=== PATIENT | male | born 1955 | race American Indian/Alaskan Native ===

== ENCOUNTER 2018-04-27 07:22 | Emergency (ER) | payer OTHER ==
[2018-04-27 07:23] VITALS: BMI 27.7
--- NOTE | 2018-04-27 07:47 | ED PDOC ---
Arrival/HPI - General Chief Complaint: Headache Time Seen by Provider: 04/27/18 07:46 Historian: Patient - History of Present Illness Narrative History of Present Illness (Text): 62 y/o M w/ h/o hypertension and diabetes presenting to the emergency department complaining of gradual onset of a persistent headache for the past 2 days. He reports the pain is localized to the right side of the head with no radiation down the neck. He took Tylenol yesterday with no alleviation in symptoms. The patient states he is worried about his elevated blood pressure and reports similar symptoms in the past. He took his morning dose of Norvasc 10mg and Losartan 50mg prior to arrival. Patient reports nausea, but denies any trauma, photophobia, vision change, fever, chills, chest pain, shortness of breath, abdominal pain, vomiting, diarrhea, urinary symptoms, back pain, neck pain, dizziness, gait change, or any other complaints. PMD: Dr. Lyssa Cooley Time/Duration: Other (2 days) Symptom Onset: Gradual Symptom Course: Unchanged Quality: Pressure Severity Level: Moderate Activities at Onset: Rest Context: Home Past Medical History - Provider Review Nursing Documentation Reviewed: Yes - Travel History Have you recently traveled outside [place] w/in the past 3 mons?: No - Infectious Disease Hx of Infectious Diseases: None - Tetanus Immunization Tetanus Immunization: Unknown - Cardiac Hx Hypertension: Yes - Psychiatric Hx Depression: No Hx Emotional Abuse: No Hx Physical Abuse: No Hx Substance Use: No - Suicidal Assessment Feels Threatened In Home Enviroment: No Family/Social History - Physician Review Nursing Documentation Reviewed: Yes Family/Social History: No Known Family HX Smoking Status: Never Smoked Hx Alcohol Use: No Hx Substance Use: No Hx Substance Use Treatment: No Allergies/Home Meds Allergies/Adverse Reactions: Allergies crabs Allergy (Intermediate, Uncoded 01/05/12 11:17) DIARRHEA shrimp Allergy (Mild, Uncoded 01/05/12 11:17) ITCHING Home Medications: Home Meds Medication Instructions Recorded Confirmed Amlodipine Bes/Olmesartan Med 1 tab PO DAILY 01/05/12 04/25/13 [[place] 10 mg-40 mg] Glyburide/Metformin HCl 1 tab PO BID 01/05/12 04/25/13 [Glyburide/Metformin 5 mg-500 mg] Review of Systems - Physician Review All systems were reviewed & negative as marked: Yes - Review of Systems Constitutional: absent: Fevers, Other (Chills) Eyes: absent: Vision Changes, Photophobia Respiratory: absent: SOB Cardiovascular: absent: Chest Pain Gastrointestinal: Nausea. absent: Abdominal Pain, Diarrhea, Vomiting Genitourinary Male: absent: Dysuria, Frequency, Hematuria Musculoskeletal: absent: Back Pain, Neck Pain Neurological: Headache. absent: Dizziness, Gait Changes Physical Exam Vital Signs Reviewed: Yes Vital Signs Pulse Resp BP Pulse Ox 04/27/18 07:30 64 18 180/95 H 97 Temperature: Afebrile Blood Pressure: Hypertensive Pulse: Regular Respiratory Rate: Normal Appearance: Positive for: Well-Appearing, Non-Toxic, Comfortable Pain Distress: None Mental Status: Positive for: Alert and Oriented X 3 - Systems Exam Head: Present: Atraumatic, Normocephalic Pupils: Present: PERRL Extroacular Muscles: Present: EOMI Conjunctiva: Present: Normal Mouth: Present: Moist Mucous Membranes Neck: Present: Normal Range of Motion Respiratory/Chest: Present: Clear to Auscultation, Good Air Exchange. No: Respiratory Distress, Accessory Muscle Use Cardiovascular: Present: Regular Rate and Rhythm, Normal S1, S2. No: Murmurs Abdomen: No: Tenderness, Distention, Peritoneal Signs Back: Present: Normal Inspection Upper Extremity: Present: Normal Inspection. No: Cyanosis, Edema Lower Extremity: Present: Normal Inspection. No: Edema Neurological: Present: GCS=15, CN II-XII Intact, Speech Normal, Motor Func Grossly Intact, Normal Cerebellar Funct, Gait Normal, Memory Normal Skin: Present: Warm, Dry, Normal Color. No: Rashes Psychiatric: Present: Alert, Oriented x 3, Normal Insight, Normal Concentration Medical Decision Making ED Course and Treatment: 04/27/18 07:47 Impression: 62 year old male presents complaining of persistent headache for the past 2 days associated with nausea. Differential Diagnosis included but are not limited to: Hypertensive urgency Migraines Clustered headache Plan: -- CT Head w/o contrast -- Labs -- Reglan --IV Fluids --Toradol -- Urinalysis -- Reassess and disposition Progress Notes: 04/27/18 08:48 Labs reviewed with anemia noted and slightly elevated glucose. CTH results pending. 04/27/18 10:10 CTH shows old lacunar infarcts as well as microangiopathic changes chronic in nature. Patient reevaluated with improvement in symptoms. He does not desire to stay and will follow up with his PCP in the next 2 days. Patient is advised to follow up with neurology for MRI. Will provide follow up. Scripts provided. He is stable for discharge. - Lab Interpretations I have reviewed the lab results: Yes - RAD Interpretation Narrative RAD Interpretations (Text): PROCEDURE: CT HEAD WITHOUT CONTRAST. Dictator : Nicole Vegas MD Report Date : 04/27/2018 09:38:14 IMPRESSION: No acute intracranial abnormality. Old lacunar infarctions in the right caudate head and basal ganglia. Old infarctions in the right posterior inferior temporal lobe and right superior lateral cerebellar hemisphere. Community Service Specialist: Radiologist - Scribe Statement The provider has reviewed the documentation as recorded by the Scribe Meenu Alvarado Provider Scribe Attestation: All medical record entries made by the Scribe were at my direction and personally dictated by me. I have reviewed the chart and agree that the record accurately reflects my personal performance of the history, physical exam, medical decision making, and the department course for this patient. I have also personally directed, reviewed, and agree with the discharge instructions and disposition. Disposition/Present on Arrival - Present on Arrival Any Indicators Present on Arrival: No History of DVT/PE: No History of Uncontrolled Diabetes: No Urinary Catheter: No History of Decub. Ulcer: No History Surgical Site Infection Following: None - Disposition Have Diagnosis and Disposition been Completed?: Yes Diagnosis: Headache Disposition: HOME/ ROUTINE Disposition Time: 10:13 Patient Plan: Discharge Condition: IMPROVED Discharge Instructions (ExitCare): Sinus Headache (DC), Headache, Adult (DC), Tension Headache (DC) Additional Instructions: Please follow up with your PCP in 1-2 days Please follow up with neurology for outpatient MRI All medical record entries made by the Scribe were at my direction and personally dictated by me. I have reviewed the chart and agree that the record accurately reflects my personal performance of the history, physical exam, medical decision making, and the department course for this patient. I have also personally directed, reviewed, and agree with the discharge instructions and disposition. Prescriptions: Acetaminophen/Butalbital/Caf [Fioricet] 1 tab PO Q6H #4 tab Metoclopramide HCl [Reglan] 5 mg PO PRN PRN #10 tablet PRN Reason: Headache Referrals: Jeremy Biggs MD [Staff Provider] - Follow up with primary Forms: [employer] (B[place]hi), WORK NOTE
[2018-04-27] MEDS ORDERED: Sodium Chloride 0.9% 1,000 ML IV STA (07:51)
[2018-04-27 08:22] LABS: BASO # 0.02 K/mm3 (0.0-2.0); BASO % 0.2 % (0.0-3.0); EOS # 0.2 (0.0-0.7); EOS % 1.5 % (1.5-5.0); GRAN # 7.78 (1.4-6.5); GRAN % 75.8 % (50.0-68.0); HEMOGLOBIN 11.7 g/dL (14.0-18.0); LYMPH % 19.2 % (22.0-35.0); MEAN CELL VOLUME 82.2 fl (80.0-105.0); MEAN CORPUSCULAR HEMOGLOBIN 26.7 pg (25.0-35.0); MEAN CORPUSCULAR HGB CONC 32.4 g/dl (31.0-37.0); MEAN PLATELET VOLUME 10.4 fl (7.0-11.0); MONO # 0.3 (0.1-0.6); MONO % 3.3 % (1.0-6.0); RBC 4.39 10^6/uL (3.5-6.1); RED CELL DISTRIBUTION WIDTH 14.9 % (11.5-14.5); WHITE BLOOD COUNT 10.3 10^3/ul (4.5-11.0)
[2018-04-27 08:29] LABS: ALB/GLOB RATIO 1.2 (1.1-1.8); ALBUMIN 4.1 g/dL (3.0-4.8); ALT/SGPT 41 U/L (7-56); AST/SGOT 44 U/L (17-59); BLOOD UREA NITROGEN 21 mg/dL (7-21); CALCIUM 9.2 mg/dL (8.4-10.5); GFR NON-AFRICAN AMERICAN > 60
[2018-04-27 08:45] LABS: TROPONIN I < 0.01 ng/mL
[2018-04-27] MEDS ORDERED: DiphenhydrAMINE 50 mg/ml Inj IVP STA (09:15)
[2018-04-27] MEDS ORDERED: Apap-Butalbital-Caffeine 325-50-40mg Tab PO ONE (09:18)
--- NOTE | 2018-04-27 09:41 | CT ---
Date of service: 04/27/2018 PROCEDURE: CT HEAD WITHOUT CONTRAST. HISTORY: headache COMPARISON: None available. TECHNIQUE: Axial computed tomography images were obtained through the head/brain without intravenous contrast. Radiation dose: Total exam DLP = 964.41 mGy-cm. This CT exam was performed using one or more of the following dose reduction techniques: Automated exposure control, adjustment of the mA and/or kV according to patient size, and/or use of iterative reconstruction technique. FINDINGS: HEMORRHAGE: No intracranial hemorrhage. BRAIN: There is an old lacunar infarctions in the right caudate head and basal ganglia. There are old infarctions in the right posterior inferior temporal lobe and right superior lateral cerebellar hemisphere.. There is no mass, mass effect or abnormal extra-axial fluid collection. This the midline sagittal structures are normal. VENTRICLES: There is mild age-related global parenchymal volume loss and proportionate enlargement of the ventricles and cortical sulci. CALVARIUM: The skull base and calvarium are normal. PARANASAL SINUSES: Predominantly clear. MASTOID AIR CELLS: Predominantly clear. OTHER FINDINGS: The globes are symmetric and normal in appearance. IMPRESSION: No acute intracranial abnormality. Old lacunar infarctions in the right caudate head and basal ganglia. Old infarctions in the right posterior inferior temporal lobe and right superior lateral cerebellar hemisphere.
[2018-04-27 09:58] LABS: URINE BILIRUBIN NEGATIVE (NEGATIVE); URINE BLOOD NEGATIVE (NEGATIVE); URINE GLUCOSE (UA) NEGATIVE (NEGATIVE); URINE LEUKOCYTE ESTERASE NEGATIVE Leu/uL (NEGATIVE); URINE PROTEIN TRACE mg/dL (<30 mg/dL); URINE UROBILINOGEN 0.2 E.U./dL (<1 E.U./dL)
[2018-04-27 10:10] LABS: URINE APPEARANCE CLEAR (CLEAR); URINE COLOR YELLOW (YELLOW)
[2018-04-27 10:11] LABS: URINE RBC 0 - 2 /hpf (0-2); URINE WBC NEGATIVE /hpf (0-6)
[2018-04-27 10:33] VITALS: BP 152/82
[2018-04-27 10:34] VITALS: PULSE 80; RESP 18; O2SAT 98
== END 2018-04-27 10:34 | disposition home or self-care (01) ==
LOC: ED 07:22
DX: R51 Headache (principal); I10 Essential (primary) hypertension
CPT/HCPCS: 70450; 80053; 81001; 84484; 85025; 96374; 96375; 99285; J1885; J2765; J7030

== ENCOUNTER 2018-07-12 14:33 | Inpatient (IN) | payer OTHER ==
--- NOTE | 2018-07-12 14:42 | ED PDOC ---
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 This is the last time well. Patient went to workplace nurse who noticed patient with R sided facial droop and slurred speech. Patient denies pain, fever, nausea, vomiting, chest pain, dyspnea. Past Medical History - Provider Review Nursing Documentation Reviewed: Yes - Infectious Disease Hx of Infectious Diseases: None - Tetanus Immunization Tetanus Immunization: Unknown - Cardiac Hx Hypertension: Yes - Psychiatric Hx Depression: No Hx Emotional Abuse: No Hx Physical Abuse: No Hx Substance Use: No - Suicidal Assessment Feels Threatened In Home Enviroment: No Family/Social History - Physician Review Nursing Documentation Reviewed: Yes Family/Social History: No Known Family HX Smoking Status: Never Smoked Hx Alcohol Use: No Hx Substance Use: No Hx Substance Use Treatment: No Allergies/Home Meds Allergies/Adverse Reactions: Allergies crabs Allergy (Intermediate, Uncoded 07/12/18 18:11) DIARRHEA shrimp Allergy (Mild, Uncoded 07/12/18 18:11) ITCHING Home Medications: Home Meds Medication Instructions Recorded Confirmed Sitagliptin Phos/Metformin HCl 1 each PO BID 07/12/18 07/12/18 [Janumet Xr 50-1,000 mg Tablet] amLODIPine [Norvasc] 10 mg PO DAILY 07/12/18 07/12/18 Review of Systems - Physician Review All systems were reviewed & negative as marked: Yes - Review of Systems Constitutional: absent: Fevers Respiratory: absent: SOB Physical Exam - Physical Exam Narrative Physical Exam (Text): Gen: NAD Head: NC/AT Eyes: PERRL ENT: MMM Neck: Supple Chest: No tenderness CV: Regular rate Lungs: CTA b/l Abd: Soft, NT Back: No CVA tenderness Skin: No rash Extremities: No edema or tenderness Neuro: Alert. R sided facial droop. R arm motor 4/5. Finger Stick Blood Glucose: 101 Medical Decision Making ED Course and Treatment: CODE STROKE activated on arrival. EKG NSR 67 bpm, no ST elevations. 07/12/2018 15:[address] IMPRESSION: There is a chronic infarct with encephalomalacia in the right cerebellar hemisphere and right medial temporal lobe. There are no acute findings. Dictator: Godwin Ha MD 07/12/2018 15:12 Head/Neck CTA IMPRESSION: Unremarkable CT Angiography of the Brain. Dictator: Godwin Ha MD 07/12/2018 15:55 Chest X-ray IMPRESSION: No active disease. Dictator: Devante Connelly MD Prior to tPA administration, patient's neuro exam now normal. Aspirin administered. Dr. Krishnan accepts patient to medical service. Dr. Tolentino will consult. - RAD Interpretation Radiology Orders: 07/12/18 14:38 CTA HEAD/NECK CODE STROKE [CT] Stat HEAD W/O (CODE STROKE) [CT] Stat CHEST PORTABLE [RAD] Stat - Medication Orders Current Medication Orders: Sodium Chloride (Sodium Chloride 0.9%) 1,000 mls @ 100 mls/hr IV .Q10H GRACE NIHSS Scale ([place]) Time Performed: 15:20 - How Severe is the Stoke Baseline Level of Consciousness: 0=Alert LOC to Questions: 0=Both comments correct LOC to commands: 0=Obeys both correctly Best Gaze: 0=Normal Visual: 0=No visual loss Facial: 2=Partial (lower face paralysis) Motor Arm - Left: 0=No drift Motor Arm - Right: 1=Drift noted before 10 sec Motor Leg - Left: 0=No drift Motor Leg - Right: 0=No drift Limb Ataxia: 0=Absent Sensory: 0=Normal Best Language: 0=No aphasia Dysarthia: 1=Mild to moderate slurring Extinction & Inattention (Neglect): 0=Normal, no object Score: 4 Risk Level: Minor Stroke Risk NIHSS Scale([place]) 2 Time Performed: 15:58 - How Severe is the Stoke Baseline Level of Consciousness: 0=Alert LOC to Questions: 0=Both comments correct LOC to commands: 0=Obeys both correctly Best Gaze: 0=Normal Visual: 0=No visual loss Facial: 0=Normal Motor Arm - Left: 0=No drift Motor Arm - Right: 0=No drift Motor Leg - Left: 0=No drift Motor Leg - Right: 0=No drift Limb Ataxia: 0=Absent Sensory: 0=Normal Best Language: 0=No aphasia Dysarthia: 0=Normal articulation Extinction & Inattention (Neglect): 0=Normal, no object Score: 0 Risk Level: No Stroke Risk rTPA Inclusion/Exclusion - Refusal of Treatment Patient Refused Treatment: No - Inclusion Criteria for Altepase Patient is 18 years or Older: Yes The Clinical Diagnosis of Ischemic Stroke That is Causing a Potentially Disabling Neurological Deficit: Yes Time of Onset is Well Established to be Less Than 270 Minute Before Treatment Would Begin: Yes Risk/Benefit Discussed With Patient/Family Member Present: Yes - Warning to TPA With Conditions Condition: Rapid Improvement Disposition/Present on Arrival - Present on Arrival Any Indicators Present on Arrival: No History of DVT/PE: No History of Uncontrolled Diabetes: No Urinary Catheter: No History Surgical Site Infection Following: None - Disposition Have Diagnosis and Disposition been Completed?: Yes Diagnosis: TIA (transient ischemic attack) Disposition: HOSPITALIZED Disposition Time: 15:03 Patient Plan: Observation, Telemetry Condition: FAIR
[2018-07-12] MEDS ORDERED: Iohexol 350 MG/100 ML VIAL ONE (14:44)
--- NOTE | 2018-07-12 14:56 | CP.PCM.CON ---
<Henry Chicas - Last Filed: 07/13/18 15:02> History of Present Illness - History of Present Illness History of Present Illness: Neurology consult note for Dr. Rajan Chicas PGY2 Patient is a 62 M with past medical history of TIA (3-4 years prior), NIDDM and hypertension presenting with complaints of similar to his TIA symptoms a few years back. 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 Prior to this he noticed that his walking was off, with a right sided limp as well as slurred speech. He was concerned with these symptoms and asked a coworker to assess his strength. Coworker stated his strength was fine however patient felt otherwise so he then went to the staff nurse for further evaluation where she found patient to have right sided facial droop and slurred speech. Patient denies fevers, chills, headache, dizziness, vision changes, or olfactory changes. 12 point ROS reviewed and unremarkable except what has been mentioned in HPI. PMD: Dr. Omalley Sayed PMHx: TIA, NIDDM, Hypertension Medications:Glyburide/Metformin HCL 5 mg-500 mg BID, Amlodipine Bes/Olmesartan Med 10 mg-40 mg Social Hx: Denies tobacco, alcohol, illicit drug use CTH 07/12/18: chronic infarct with encephalomalacia in the right cerebellar hemisphere and right medial temporal lobe. No acute findings. CTH 04/20: no acute intracranial abnormality. Old lacunar infarctions in right caudate head and basal ganglia. Old infarctions in the right posterior inferior temporal lobe and right superior lateral cerebellar hemisphere CTA head and neck: unremarkable Review of Systems - Review of Systems All systems: reviewed and no additional remarkable complaints except Past Patient History - Infectious Disease Hx of Infectious Diseases: None - Tetanus Immunizations Tetanus Immunization: Unknown - Past Social History Smoking Status: Never Smoked - CARDIAC Hx Hypertension: Yes - PSYCHIATRIC Hx Depression: No Hx Emotional Abuse: No Hx Physical Abuse: No Hx Substance Use: No Meds Allergies/Adverse Reactions: Allergies Allergy/AdvReac Type Severity Reaction Status Date / Time crabs Allergy Intermediate DIARRHEA Uncoded 07/12/18 18:11 shrimp Allergy Mild ITCHING Uncoded 07/12/18 18:11 - Medications Medications: Current Medications Sodium Chloride (Sodium Chloride 0.9%) 1,000 mls @ 100 mls/hr IV .Q10H GRACE Physical Exam - Head Exam Head Exam: ATRAUMATIC, NORMAL INSPECTION, NORMOCEPHALIC - Eye Exam Eye Exam: EOMI - ENT Exam ENT Exam: Mucous Membranes Moist - Respiratory Exam Respiratory Exam: Clear to Auscultation Bilateral, NORMAL BREATHING PATTERN - Cardiovascular Exam Cardiovascular Exam: REGULAR RHYTHM - Neurological Exam Neurological exam: Alert, CN II-XII Intact, Oriented x3 - Expanded Neurological Exam Expanded Speech: Fluid Speech Cranial nerves: EOM's Intact: Normal, Facial Sensation: Normal, Tongue D eviation: Normal Cerebellar Function: Finger to Nose: Normal, Heel to Amado: Normal, Romberg: Normal Upper motor neuron: Pronator Drift: Abnormal Right, Sensory Extinction: Normal Sensory exam: Lower Extremity 2 Point Discrimination: Normal, Upper Extremity 2 Point Discrimination: Normal Neuro motor strength exam: Left Upper Extremity: 5, Right Upper Extremity: 5, Left Lower Extremity: 5, Right Lower Extremity: 5 DTR: Patellar Left: 0, Patellar Right: 0 Coma Scale Motor Response: OBEYS COMMANDS - Psychiatric Exam Psychiatric exam: Normal Affect, Normal Mood - Skin Skin Exam: Normal Color, Warm Results - Labs Result Diagrams: 07/13/18 06:00 07/13/18 06:00 Assessment & Plan - Assessment and Plan (Free Text) Assessment: 62 M with history of right cerebellar stroke presenting with TIA symptoms including right arm heaviness, slurred speech, and right leg weakness which have improved within less than 24 hours. -Start daily aspirin -Start Plavix for 3 weeks -Start statin -MRI brain -Lipid panel, HgA1c <Saad Tolentino - Last Filed: 07/16/18 14:08> Results - Vital Signs Recent Vital Signs: Last Vital Signs Temp 98.1 F 07/15/18 12:00 Pulse 65 07/15/18 12:00 Resp 21 07/15/18 12:00 BP 168/97 H 07/15/18 12:00 Pulse Ox 99 07/14/18 00:01 - Labs Result Diagrams: 07/13/18 06:00 07/13/18 06:00 Labs: Laboratory Results - last 24 hr 07/15/18 17:15 POC Glucose (mg/dL) 115 H Attending/Attestation - Attestation I have personally seen and examined this patient.: Yes I have fully participated in the care of the patient.: Yes I have reviewed all pertinent clinical information: Yes Notes (Text): I agree with the assessment and plan: -Start daily aspirin -Start Plavix for 3 weeks -Start statin -MRI brain -Lipid panel, HgA1c
--- NOTE | 2018-07-12 15:06 | CT ---
Date of service: 07/12/2018 PROCEDURE: CT HEAD WITHOUT CONTRAST. HISTORY: Code Stroke COMPARISON: 04/27/2018 TECHNIQUE: Axial computed tomography images were obtained through the head/brain without intravenous contrast. Radiation dose: Total exam DLP = 1027.48 mGy-cm. This CT exam was performed using one or more of the following dose reduction techniques: Automated exposure control, adjustment of the mA and/or kV according to patient size, and/or use of iterative reconstruction technique. FINDINGS: HEMORRHAGE: No intracranial hemorrhage. BRAIN: No mass effect or edema. There is a chronic infarct with encephalomalacia in the right cerebellar hemisphere and right medial temporal lobe. There are no acute findings. VENTRICLES: Unremarkable. No hydrocephalus. CALVARIUM: Unremarkable. PARANASAL SINUSES: Unremarkable as visualized. No significant inflammatory changes. MASTOID AIR CELLS: Unremarkable as visualized. No inflammatory changes. OTHER FINDINGS: None. IMPRESSION: There is a chronic infarct with encephalomalacia in the right cerebellar hemisphere and right medial temporal lobe. There are no acute findings.
--- NOTE | 2018-07-12 15:16 | CT ---
Date of service: 07/12/2018 PROCEDURE: CT Angiography of the neck with contrast HISTORY: R sided weakness/facial droop COMPARISON: None. TECHNIQUE: Contiguous axial images of the neck were obtained from the level of the skull-base to the superior mediastinum in the arteriographic phase of enhancement. Coronal and sagittal reformats or also generated. IV contrast dose: 100 cc of Omni 350 Radiation dose: Total exam DLP = 624.96 mGy-cm. This CT exam was performed using one or more of the following dose reduction techniques: Automated exposure control, adjustment of the mA and/or kV according to patient size, and/or use of iterative reconstruction technique. FINDINGS: RIGHT CAROTID ARTERIES: Common Carotid Artery: Normal. Carotid Bifurcation: Normal. Internal Carotid Artery:Normal. External Carotid Artery (proximal branches): Normal. LEFT CAROTID ARTERIES: Common Carotid Artery: Normal. Carotid Bifurcation: Normal. Internal Carotid Artery:Normal. External Carotid Artery (proximal branches): Normal. VERTEBRAL ARTERIES: Right Vertebral Artery: Normal. Left Vertebral Artery: Normal. OTHER FINDINGS: no aortic atherosclerotic calcification or mural plaque present. IMPRESSION: Normal CT Angiography of the neck. PROCEDURE: CT Angiography of the Brain. HISTORY: R sided weakness/facial droop COMPARISON: None available. TECHNIQUE: CT angiography of the intracranial arteries was performed. Coronal and sagittal maximum intensity projection reformated images were generated. Radiation dose: Total exam DLP = 624.96 mGy-cm. This CT exam was performed using one or more of the following dose reduction techniques: Automated exposure control, adjustment of the mA and/or kV according to patient size, and/or use of iterative reconstruction technique. FINDINGS: INTERNAL CEREBRAL ARTERIES: Unremarkable. The skull base, petrous, cavernous and supraclinoid segments are bilaterally widely patent. ANTERIOR CEREBRAL ARTERIES: Unremarkable. A1 and A2 segments are widely patent. Smaller distal branches unremarkable, as visualized. MIDDLE CEREBRAL ARTERIES: Unremarkable. M1 and M2 segments are widely patent. Perisylvian branches grossly symmetric. POSTERIOR CIRCULATION: Basilar Artery: Unremarkable. Distal Vertebral Arteries: Unremarkable. Posterior Cerebral Arteries: Unremarkable. Posterior Inferior Cerebellar Arteries: Unremarkable. ANEURYSM/ VASCULAR MALFORMATIONS: None. OTHER FINDINGS: None. IMPRESSION: Unremarkable CT Angiography of the Brain.
[2018-07-12] MEDS ORDERED: ALTEPLASE IV ONE (15:30)
[2018-07-12] MEDS ORDERED: [UNRECOGNIZED DRUG - OTHER] IV ONE (15:30)
[2018-07-12] MEDS: Sodium Chloride 0.9% 1,000 ML IV SCH (15:33)
[2018-07-12 15:35] LABS: BASO # 0.03 K/mm3 (0.0-2.0); BASO % 0.4 % (0.0-3.0); EOS # 0.2 (0.0-0.7); EOS % 2.3 % (1.5-5.0); GRAN # 5.4 (1.4-6.5); GRAN % 67.8 % (50.0-68.0); HEMOGLOBIN 12.1 g/dL (14.0-18.0); LYMPH # 1.9 (1.2-3.4); LYMPH % 23.3 % (22.0-35.0); MEAN CORPUSCULAR HEMOGLOBIN 26.7 pg (25.0-35.0); MEAN CORPUSCULAR HGB CONC 32.2 g/dl (31.0-37.0); MEAN PLATELET VOLUME 9.9 fl (7.0-11.0); MONO # 0.5 (0.1-0.6); MONO % 6.2 % (1.0-6.0); RBC 4.53 10^6/uL (3.5-6.1); RED CELL DISTRIBUTION WIDTH 14.9 % (11.5-14.5)
[2018-07-12 15:54] LABS: INR 0.94; PARTIAL THROMBOPLASTIN TIME 29.9 Seconds (25.1-36.5); PROTHROMBIN TIME 10.7 SECONDS (9.4-12.5)
[2018-07-12 15:58] LABS: ALB/GLOB RATIO 1.3 (1.1-1.8); ALBUMIN 4.4 g/dL (3.0-4.8); ALT/SGPT 47 U/L (7-56); AST/SGOT 42 U/L (17-59); BLOOD UREA NITROGEN 25 mg/dL (7-21); CALCIUM 9.6 mg/dL (8.4-10.5); GFR NON-AFRICAN AMERICAN > 60; HDL CHOLESTEROL 77 mg/dL (29-60)
--- NOTE | 2018-07-12 15:59 | RAD ---
Date of service: 07/12/2018 HISTORY: Code Stroke COMPARISON: No prior. FINDINGS: LUNGS: No active pulmonary disease. PLEURA: No significant pleural effusion identified, no pneumothorax apparent. CARDIOVASCULAR: No atherosclerotic calcification present Normal. OSSEOUS STRUCTURES: No significant abnormalities. VISUALIZED UPPER ABDOMEN: Normal. OTHER FINDINGS: None. IMPRESSION: No active disease.
[2018-07-12 16:00] LABS: LDL CHOLESTEROL 99 mg/dL (0-129)
[2018-07-12 16:03] LABS: TROPONIN I < 0.01 ng/mL
--- NOTE | 2018-07-12 18:35 | CARD ---
APPROVED REPORT Date of service: 07/12/2018 EKG Measurement Heart [id number] <Conclusion> Normal sinus rhythm Left ventricular hypertrophy Nonspecific T wave abnormality Abnormal ECG
[2018-07-12 18:57] VITALS: BMI 28.4
[2018-07-12] MEDS ORDERED: Pneumococcal 23-Valent Vaccine IM ONE (18:57)
[2018-07-12] MEDS ORDERED: Influenza Vaccine 60 mcg/0.5 mL SYR (4YR UP) IM ONE (18:57)
--- NOTE | 2018-07-13 01:59 | HP ---
DATE OF EXAM: 07/12/2018 The patient was seen and examined at the bedside in telemetry on 07/12/2018. CHIEF COMPLAINT: Right-sided weakness. HISTORY OF PRESENT ILLNESS: Mr. Stephane Everett is a 62-year-old male came with right-sided weakness . 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 The patient went to work place, nurse who noticed that the patient with right-sided facial droop and slurring speech. The patient denies pain, fever, nausea, vomiting, chest pain, or dysphagia. History of itn-recmbvf-bmwrqbmwe diabetes mellitus and hypertension. When I saw the patient in the room, facial droop was better. PAST MEDICAL HISTORY: Par-lcpqoso-ceaxytxau diabetes mellitus, hypertension, and history of TIA few years ago. SOCIAL HISTORY: Denies tobacco, alcohol, or illicit drug use. FAMILY HISTORY: Father mother noncontributory. ALLERGIES: THE PATIENT IS ALLERGIC WITH CRABS AND SHRIMPS, BUT NOT WITH MEDICATIONS. HOME MEDICATIONS: Denied. PHYSICAL EXAMINATION: VITAL SIGNS: Temperature 97.7, pulse 59, blood pressure 170/83, respiratory rate 18, and oxygenation 98% on room air. HEENT: Head; normocephalic and atraumatic. Eyes; PERRLA. Extraocular muscles intact. Conjunctivae clear. Nose patent. Mucous membrane moist. NEUROLOGIC: Cranial nerves II through XII are intact. Oriented x3. Speech fluent. EXTREMITIES: All 4 extremities strength is 5/5. LABORATORY DATA: White blood cell 8, hemoglobin 12.1, hematocrit 37.6, and platelets 207. Sodium 140, potassium 3.7, BUN 25, and creatinine 1. Glucose 129. Liver function test is within normal limits. HDL 77. Cholesterol 199. Triglycerides 62. ASSESSMENT AND PLAN: Mr. Stephane Everett is a 62-year-old male with anemia, increased BUN, hyperglycemia, and came with weakness. CAT scan of the head and neck done. Unremarkable CT angio of the brain. Chest x-ray reviewed by me, no active disease. The patient has history of transient ischemic attack, odb-tzhhyob-feindlqaa diabetes mellitus, hypertension, came with complaints of transient ischemic attack symptoms, but tPA window was over as per ER as he had discussions done with neurologist. All scans were reviewed by me. Discussion done with ER physician and the patient's nurse. The patient seen by Dr. Henry Chicas. Final diagnosis is transient ischemic attack. Gastrointestinal and deep venous thrombosis prophylaxes. Repeat labs. We will follow. Arza Krishnan MD MTDD
[2018-07-13] MEDS: Sodium Chloride 0.9% 1,000 ML IV SCH (06:16)
[2018-07-13 06:43] LABS: HEMOGLOBIN 11.6 g/dL (14.0-18.0); MEAN CELL VOLUME 82.7 fl (80.0-105.0); MEAN CORPUSCULAR HEMOGLOBIN 26.1 pg (25.0-35.0); MEAN CORPUSCULAR HGB CONC 31.5 g/dl (31.0-37.0); MEAN PLATELET VOLUME 9.6 fl (7.0-11.0); RBC 4.45 10^6/uL (3.5-6.1); RED CELL DISTRIBUTION WIDTH 14.8 % (11.5-14.5); WHITE BLOOD COUNT 6.5 10^3/uL (4.5-11.0)
[2018-07-13 06:52] LABS: IRON 72 ug/dL (45-180)
[2018-07-13 06:54] LABS: BLOOD UREA NITROGEN 21 mg/dL (7-21); CALCIUM 9.4 mg/dL (8.4-10.5); GFR NON-AFRICAN AMERICAN > 60; HDL CHOLESTEROL 69 mg/dL (29-60)
[2018-07-13 07:07] LABS: LDL CHOLESTEROL 84 mg/dL (0-129)
[2018-07-13 07:08] LABS: % IRON SATURATION 26 % (20-55); TOTAL IRON BINDING CAPACITY 275 ug/dL (261-462); TROPONIN I < 0.01 ng/mL
[2018-07-13 07:21] LABS: CK-MB 4.5 ng/mL (0.0-3.6)
[2018-07-13] MEDS: Insulin Reg-LOW-Coverage SC SCH ×4 (08:47→22:06)
--- NOTE | 2018-07-13 10:44 | CP.PCM.CON ---
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 He also complaints of not walking right with right sided limp and slurred speech. He was concern about symptoms so he asked his coworker to check his strength. Strengh was fine however patient felt otherwise so he then went to the staff nurse for further evaluation where RN found patient to have right sided facial droop and slurred speech. He has similar right arm numbness before and being followed up by Neurologist. He had an MRI of the brain last 06/2018 and supposed to have a follow up this July. will bring CD of MRI. History of TIA (3-4 years prior), NIDDM and hypertension. Seen and examined by me and Dr. Hay Review of Systems - Review of Systems All systems: reviewed and no additional remarkable complaints except Review of Systems: as per HPI Past Patient History - Infectious Disease Hx of Infectious Diseases: None - Tetanus Immunizations Tetanus Immunization: Unknown - Past Social History Smoking Status: Never Smoked - CARDIAC Hx Hypertension: Yes - PULMONARY Hx Respiratory Disorders: Yes (USED TO SMOKE 2 PPD,QUIT 18 YRS AGO) - NEUROLOGICAL Hx Neurological Disorder: Yes Hx Transient Ischemic Attacks (TIA): Yes - HEENT Hx HEENT Problems: No - RENAL Hx Chronic Kidney Disease: No - ENDOCRINE/METABOLIC Hx Endocrine Disorders: Yes Hx Diabetes Mellitus Type 2: Yes - HEMATOLOGICAL/ONCOLOGICAL Hx Blood Disorders: No - INTEGUMENTARY Hx Dermatological Problems: No - MUSCULOSKELETAL/RHEUMATOLOGICAL Hx Musculoskeletal Disorders: No Hx Falls: No - GASTROINTESTINAL Hx Gastrointestinal Disorders: No - GENITOURINARY/GYNECOLOGICAL Hx Genitourinary Disorders: Yes Hx Prostate Problems: Yes (HAD PROSTATE SX) - PSYCHIATRIC Hx Depression: No Hx Emotional Abuse: No Hx Physical Abuse: No Hx Substance Use: No - SURGICAL HISTORY Hx Surgeries: Yes Other/Comment: penile implant - ANESTHESIA Hx Anesthesia: No Meds Allergies/Adverse Reactions: Allergies Allergy/AdvReac Type Severity Reaction Status Date / Time crabs Allergy Intermediate DIARRHEA Uncoded 07/12/18 18:11 shrimp Allergy Mild ITCHING Uncoded 07/12/18 18:11 - Medications Medications: Current Medications Aspirin (Ecotrin) 81 mg PO DAILY [facility] Last Admin: 07/13/18 09:37 Dose: 81 mg Atorvastatin Calcium (Lipitor) 40 mg PO DIN [facility] Famotidine (Pepcid) 40 mg PO HS [facility] Last Admin: 07/12/18 23:07 Dose: 40 mg Hydralazine HCl (Apresoline) 10 mg PO Q6 PRN PRN Reason: hypertension Sodium Chloride (Sodium Chloride 0.9%) 1,000 mls @ 100 mls/hr IV .Q10H [facility] Last Admin: 07/13/18 06:16 Dose: 100 mls/hr Insulin Human Regular (Humulin R Low) 0 units SC ACHS [facility]; Protocol Last Admin: 07/13/18 08:47 Dose: Not Given Physical Exam - Constitutional Appears: Non-toxic, No Acute Distress - Head Exam Head Exam: NORMAL INSPECTION, NORMOCEPHALIC - Eye Exam Eye Exam: Normal appearance Pupil Exam: NORMAL ACCOMODATION - ENT Exam ENT Exam: Mucous Membranes Moist, Normal Exam - Respiratory Exam Respiratory Exam: Clear to Auscultation Bilateral, NORMAL BREATHING PATTERN - Cardiovascular Exam Cardiovascular Exam: REGULAR RHYTHM, +S1, +S2 - GI/Abdominal Exam GI & Abdominal Exam: Normal Bowel Sounds, Soft - Extremities Exam Extremities exam: Positive for: full ROM, normal capillary refill - Neurological Exam Neurological exam: Alert, Oriented x3 Additional comments: denies slurred speech equal hand grasp.strong - Psychiatric Exam Psychiatric exam: Normal Affect, Normal Mood - Skin Skin Exam: Dry, Normal Color, Warm Results - Vital Signs Recent Vital Signs: Last Vital Signs Temp 97.5 F L 07/13/18 06:00 Pulse 71 07/13/18 09:37 Resp 18 07/13/18 06:00 BP 175/97 H 07/13/18 09:37 Pulse Ox 97 07/13/18 06:00 - Labs Result Diagrams: 07/13/18 06:00 07/13/18 06:00 Labs: Laboratory Results - last 24 hr 07/12/18 07/12/18 07/12/18 15:21 15:30 15:30 WBC 8.0 RBC 4.53 Hgb 12.1 L Hct 37.6 L MCV 83.0 MCH 26.7 MCHC 32.2 RDW 14.9 H Plt Count 207 MPV 9.9 Gran % 67.8 Lymph % (Auto) 23.3 Baca % (Auto) 6.2 H Eos % (Auto) 2.3 Baso % (Auto) 0.4 Gran # 5.40 Lymph # (Auto) 1.9 Baca # (Auto) 0.5 Eos # (Auto) 0.2 Baso # (Auto) 0.03 PT 10.7 INR 0.94 APTT 29.9 Sodium Potassium Chloride Carbon Dioxide Anion Gap BUN Creatinine Est GFR ( Amer) Est GFR (Non-Af Amer) POC Glucose (mg/dL) Random Glucose Calcium Iron TIBC % Saturation Total Bilirubin AST ALT Alkaline Phosphatase Lactate Dehydrogenase Total Creatine Kinase CK-MB (CK-2) CK-MB (CK-2) % Troponin I Total Protein Albumin Globulin Albumin/Globulin Ratio Triglycerides Cholesterol LDL Cholesterol Direct HDL Cholesterol TSH 3rd Generation Blood Type A POSITIVE Blood Type Confirm Antibody Screen Negative BBK History Checked No verified bt 07/12/18 07/12/18 07/12/18 15:30 16:27 21:01 WBC RBC Hgb Hct MCV MCH MCHC RDW Plt Count MPV Gran % Lymph % (Auto) Baca % (Auto) Eos % (Auto) Baso % (Auto) Gran # Lymph # (Auto) Baca # (Auto) Eos # (Auto) Baso # (Auto) PT INR APTT Sodium 140 Potassium 3.7 Chloride 104 Carbon Dioxide 28 Anion Gap 12 BUN 25 H Creatinine 1.0 Est GFR ( Amer) > 60 Est GFR (Non-Af Amer) > 60 POC Glucose (mg/dL) 129 H Random Glucose 100 Calcium 9.6 Iron TIBC % Saturation Total Bilirubin 0.4 AST 42 ALT 47 Alkaline Phosphatase 70 Lactate Dehydrogenase Total Creatine Kinase CK-MB (CK-2) CK-MB (CK-2) % Troponin I < 0.01 Total Protein 7.8 Albumin 4.4 Globulin 3.5 Albumin/Globulin Ratio 1.3 Triglycerides 62 Cholesterol 199 LDL Cholesterol Direct 99 HDL Cholesterol 77 H TSH 3rd Generation Blood Type Blood Type Confirm A POSITIVE Antibody Screen BBK History Checked 07/13/18 07/13/18 07/13/18 06:00 06:00 06:00 WBC 6.5 RBC 4.45 Hgb 11.6 L Hct 36.8 L MCV 82.7 MCH 26.1 MCHC 31.5 RDW 14.8 H Plt Count 187 MPV 9.6 Gran % Lymph % (Auto) Baca % (Auto) Eos % (Auto) Baso % (Auto) Gran # Lymph # (Auto) Baca # (Auto) Eos # (Auto) Baso # (Auto) PT INR APTT Sodium 142 Potassium 4.0 Chloride 107 Carbon Dioxide 27 Anion Gap 12 BUN 21 Creatinine 1.2 Est GFR ( Amer) > 60 Est GFR (Non-Af Amer) > 60 POC Glucose (mg/dL) Random Glucose 173 H Calcium 9.4 Iron 72 TIBC 275 % Saturation 26 Total Bilirubin AST ALT Alkaline Phosphatase Lactate Dehydrogenase 534 Total Creatine Kinase 556 H CK-MB (CK-2) 4.5 H CK-MB (CK-2) % Cancelled Troponin I < 0.01 Total Protein Albumin Globulin Albumin/Globulin Ratio Triglycerides 83 Cholesterol 185 LDL Cholesterol Direct 84 HDL Cholesterol 69 H TSH 3rd Generation Blood Type Blood Type Confirm Antibody Screen BBK History Checked 07/13/18 07/13/18 06:00 07:29 WBC RBC Hgb Hct MCV MCH MCHC RDW Plt Count MPV Gran % Lymph % (Auto) Baca % (Auto) Eos % (Auto) Baso % (Auto) Gran # Lymph # (Auto) Baca # (Auto) Eos # (Auto) Baso # (Auto) PT INR APTT Sodium Potassium Chloride Carbon Dioxide Anion Gap BUN Creatinine Est GFR ( Amer) Est GFR (Non-Af Amer) POC Glucose (mg/dL) 134 H Random Glucose Calcium Iron TIBC % Saturation Total Bilirubin AST ALT Alkaline Phosphatase Lactate Dehydrogenase Total Creatine Kinase CK-MB (CK-2) CK-MB (CK-2) % Troponin I Total Protein Albumin Globulin Albumin/Globulin Ratio Triglycerides Cholesterol LDL Cholesterol Direct HDL Cholesterol TSH 3rd Generation 2.87 Blood Type Blood Type Confirm Antibody Screen BBK History Checked Assessment & Plan - Assessment and Plan (Free Text) Assessment: A 62 year old male who 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 He also complaints of not walking right with right sided limp and slurred speech. He was concern about symptoms so he asked his coworker to check his strength. Strengh was fine however patient felt otherwise so he then went to the staff nurse for further evaluation where RN found patient to have right sided facial droop and slurred speech. He has similar right arm numbness before and being followed up by Neurologist. He had an MRI of the brain last 06/2018 and supposed to have a follow up this July. History of TIA (3-4 years prior), NIDDM and hypertension, former smoker 2PPD. Neuro on consult. For MRI of brain but patient claimed to be claustrophobic with close MRI. will bring CD of MRI from June 2018. No cardiac work up done at [facility]. EKG, normal sinus rythm.Troponin normal. Will order Echo. Now,no slurred speech,no arm weakness. 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 No acute findings, no hemorrhage. Plan: For echo to evaluate LV function Heart rate stable Denies arm weakness and slurred speech On Aspirin 81 mg daily,Lipitor 40 mg daily, Apresoline IV PRN. Will restart Norvasc to control blood pressure Continue current treatment Continue current medications will bring MRI CD from June 2018 Further recommendations during hospital course Will follow up Plan and treatment discussed with Dr. Hay Thank you Dr. Krishnan for the opportunity in taking care of Stephane Felderthorne - Date & Time Date: 07/13/18 Time: 06:40
[2018-07-13 13:57] LABS: FOLATE 7.1 ng/mL
--- NOTE | 2018-07-13 15:21 | CP.PCM.PN ---
Subjective - Date & Time of Evaluation Date of Evaluation: 07/13/18 Time of Evaluation: 07:30 - Subjective Subjective: Patient seen and examined at bedside in no acute distress. Patient states he has no complaints overnight. Denies difficulties speaking, extremity weakness, dizziness, weakness. Physical Exam - Head Exam Head Exam: ATRAUMATIC, NORMAL INSPECTION, NORMOCEPHALIC - Eye Exam Eye Exam: EOMI - ENT Exam ENT Exam: Mucous Membranes Moist - Respiratory Exam Respiratory Exam: Clear to Auscultation Bilateral, NORMAL BREATHING PATTERN - Cardiovascular Exam Cardiovascular Exam: REGULAR RHYTHM - Neurological Exam Neurological exam: Alert, CN II-XII Intact, Oriented x3 - Expanded Neurological Exam Expanded Speech: Fluid Speech Cranial nerves: EOM's Intact: Normal, Facial Sensation: Normal, Tongue Dev iation: Normal Cerebellar Function: Finger to Nose: Normal, Heel to Amado: Normal, Romberg: Normal Upper motor neuron: Pronator Drift: Abnormal Right, Sensory Extinction: Normal Sensory exam: Lower Extremity 2 Point Discrimination: Normal, Upper Extremity 2 Point Discrimination: Normal Neuro motor strength exam: Left Upper Extremity: 5, Right Upper Extremity: 5, Left Lower Extremity: 5, Right Lower Extremity: 5 DTR: Patellar Left: 0, Patellar Right: 0 Coma Scale Motor Response: OBEYS COMMANDS - Psychiatric Exam Psychiatric exam: Normal Affect, Normal Mood - Skin Skin Exam: Normal Color, Warm Objective - Vital Signs/Intake and Output Vital Signs (last 24 hours): Temp Pulse Resp BP Pulse Ox 98 F 66 18 163/92 H 97 07/13/18 12:00 07/13/18 12:51 07/13/18 12:00 07/13/18 12:51 07/13/18 06:00 Intake and Output: 07/13/18 07/13/18 06:59 18:59 Intake Total 1440 Output Total 1500 Balance -60 - Medications Medications: Current Medications Amlodipine Besylate (Norvasc) 10 mg PO DAILY [facility] Aspirin (Ecotrin) 81 mg PO DAILY [facility] Last Admin: 07/13/18 09:37 Dose: 81 mg Atorvastatin Calcium (Lipitor) 40 mg PO DIN [facility] Famotidine (Pepcid) 40 mg PO HS [facility] Last Admin: 07/12/18 23:07 Dose: 40 mg Hydralazine HCl (Apresoline) 10 mg PO Q6 PRN PRN Reason: hypertension Insulin Human Regular (Humulin R Low) 0 units SC ACHS [facility]; Protocol Last Admin: 07/13/18 08:47 Dose: Not Given Losartan Potassium (Cozaar) 100 mg PO DAILY [facility] - Labs Labs: 07/13/18 06:00 07/13/18 06:00 PT 10.7 SECONDS (9.4-12.5) 07/12/18 15:30 INR 0.94 07/12/18 15:30 APTT 29.9 Seconds (25.1-36.5) 07/12/18 15:30 Assessment and Plan - Assessment and Plan (Free Text) Assessment: 62 M with history of right cerebellar stroke presenting with TIA symptoms including right arm heaviness, slurred speech, and right leg weakness which have improved within less than 24 hours. -Continue daily aspirin -Start Plavix for 3 weeks was original plan however patient states he does not want to take plavix. -Continue statin considering ASCVD score of 37.5% -MRI brain; patient states he does not want to do MRI inpatient since it is not an open MRI. Patient states he will have an open MRI outpatient upon discharge since he is claustrophobic -Patient's DM is uncontrolled with a HgA1c of 8. Discussed with patient need for diet and exercise. Patient states he refuses to take insulin and is trying to control his DM with medication and diet alone.
--- NOTE | 2018-07-13 17:03 | CARD ---
APPROVED REPORT Date of service: 07/13/2018 EXAM: Two-dimensional and M-mode echocardiogram with Doppler and color Doppler. INDICATION LVFX 2D DIMENSIONS Left Atrium (2D)4.4 (1.6-4.0cm)IVSd1.5 (0.7-1.1cm) LVDd4.3 (3.9-5.9cm)PWd1.5 (0.7-1.1cm) LVDs2.7 (2.5-4.0cm)FS (%) 37.4 % LVEF (%)67.7 (>50%) M-Mode DIMENSIONS Aortic Root3.60 (2.2-3.7cm)Aortic Cusp Exc.2.00 (1.5-2.0cm) Aortic Valve AoV Peak Ssrcwunq596.0cm/Shiva Peak GR.12mmHg Mitral Valve MV E Srepnbsx88.9cm/sMV A Zznhgpsm17.1cm/sE/A ratio0.8 TDI Lateral E' Peak V6.34cm/sMedial E' Peak V4.19cm/sE/Lateral E'10.7 E/Medial E'16.2 Pulmonary Valve PV Peak Fahtpgnf41.1cm/sPV Peak Grad.3mmHg Tricuspid Valve TR Peak Jtbeyqsy169ce/sRAP [id number] Peak Gr.16mmHg [id number] LEFT VENTRICLE The left ventricle is normal size. There is mild to moderate concentric left ventricular hypertrophy. The left ventricular function is normal.EF-65% There is normal LV segmental wall motion. Transmitral Doppler flow pattern is Grade III-reversible restrictive diastolic dysfunction. No left ventricle thrombus noted on this study. There is no ventricular septal defect visualized. There is no left ventricular aneurysm. There is no mass noted in the left ventricle. RIGHT VENTRICLE The right ventricle is normal size. There is normal right ventricular wall thickness. The right ventricular systolic function is normal. ATRIA The left atrium is mildly dilated. The right atrium size is normal. The interatrial septum is intact with no evidence for an atrial septal defect. AORTIC VALVE The aortic valve is thickened but opens well. There is trace aortic regurgitation. There is no aortic valvular stenosis. There is no aortic valvular vegetation. MITRAL VALVE The mitral valve is thickened but opens well. Mitral regurgitation is trace to mild. There is no mitral valve stenosis. There is no evidence of mitral valve prolapse. TRICUSPID VALVE The tricuspid valve leaflets are thickened , but open well. There is trace to mild tricuspid regurgitation.RVSP-26 mmof Hg. There is no tricuspid valve stenosis. There is no tricuspid valve prolapse or vegetation. PULMONIC VALVE The pulmonary valve is normal in structure. There is trace pulmonic valvular regurgitation. There is no pulmonic valvular stenosis. GREAT VESSELS The aortic root is normal in size. The ascending aorta is normal in size. The pulmonary artery is normal. The IVC is normal in size and collapses >50% with inspiration. PERICARDIAL EFFUSION There is no pleural effusion. There is a trivial pericardial effusion. <Conclusion> The left ventricle is normal size. There is mild to moderate concentric left ventricular hypertrophy. The left ventricular function is normal.EF-65% There is trace aortic regurgitation. Mitral regurgitation is trace to mild. There is trace to mild tricuspid regurgitation.RVSP-26 mmof Hg. There is trace pulmonic valvular regurgitation. There is a trivial pericardial effusion. no thrombus or vegetation noted.
[2018-07-14 00:54] VITALS: O2SAT 99
--- NOTE | 2018-07-14 04:18 | PN ---
DATE: 07/13/2018 SUBJECTIVE: The patient is a 62-year-old male. The patient was seen and examined at the bedside on 07/13/2018, looking comfortable. No fever. No headache. No dizziness. No chest pain. No palpitations. No hematuria. No hematochezia. Do not look like in acute distress. Denies difficulty of speaking, acute weakness, dizziness or weakness. No shortness of breath. PHYSICAL EXAMINATION: VITAL SIGNS: Temperature 98, pulse 86, respiratory rate 18, blood pressure 163/92, pulse oximetry 97%. HEENT: Normocephalic and atraumatic. Eyes PERRLA. Extraocular muscles intact. Conjunctivae clear. Nose patent. Mucous membranes are moist. NECK: Supple. No carotid bruits or thyromegaly. CHEST: Bilaterally symmetrical. HEART: S1 and S2 positive. LUNGS: Clear to auscultation. ABDOMEN: Soft. Bowel sounds present. No organomegaly. EXTREMITIES: No edema. No cyanosis.. NEUROLOGIC: The patient is awake and alert. Moving all four extremities. No focal deficits. MEDICATIONS: Amlodipine, aspirin, atorvastatin, Pepcid, hydralazine, insulin, Losartan. LABORATORY DATA: White blood cell 6.5, hemoglobin 11.6, hematocrit 36.8, and platelets 187. Sodium 142, potassium 4, BUN 21, creatinine 1.2, and glucose 173. ASSESSMENT AND PLAN: Mr. Stephane Everett is a 62-year-old male with anemia, hypoglycemia, came with right-sided cerebral stroke, presenting with transient ischemic attack symptoms including right arm heaviness, slurring speech, right leg weakness which has improved within less than 24 hours. We will continue aspirin. Neurologist started the Plavix, MRI of the brain, which stats that the patient does not want to do MRI inpatient since it is not an open MRI. The patient states that he will have an open MRI as an outpatient upon discharge since he is claustrophobic. Hemoglobin A1c is 8.1; if hemoglobin A1c is 8, it means it is uncontrolled. Need diet and exercise. Will require diabetic classes. The patient is refusing insulin to take. He said he will try to control his diabetes with medication and lift style modification. 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 Did echo for left ventricular function, heart rate is stable. Norvasc started. MRI was done in 06/2018, will bring the CD. TSH is within normal limits. Total creatine kinase is 556. Out of bed, physical therapy, repeat labs. We will follow up. Azra Krishnan MD
--- NOTE | 2018-07-14 06:52 | CP.PCM.PN ---
Subjective - Date & Time of Evaluation Date of Evaluation: 07/14/18 Time of Evaluation: 06:20 - Subjective Subjective: Easily awaken, feels okay, no distress Reason for consultation and follow up: Cardiac evaluation, history of TIA, hypertension, NIDDM, admitted for right sided facial droop and slurred speech with resolution within 24 hours. Seen and examined by me and Dr. Hay Objective - Vital Signs/Intake and Output Vital Signs (last 24 hours): Temp Pulse Resp BP Pulse Ox 97.5 F L 62 20 152/89 H 99 07/14/18 00:01 07/14/18 02:00 07/14/18 00:01 07/14/18 00:01 07/14/18 00:01 Intake and Output: 07/13/18 07/14/18 18:59 06:59 Intake Total 2020 Output Total 900 Balance 1120 - Medications Medications: Current Medications Amlodipine Besylate (Norvasc) 10 mg PO DAILY [facility] Last Admin: 07/13/18 17:29 Dose: 10 mg Aspirin (Ecotrin) 81 mg PO DAILY [facility] Last Admin: 07/13/18 09:37 Dose: 81 mg Atorvastatin Calcium (Lipitor) 40 mg PO DIN [facility] Last Admin: 07/13/18 17:28 Dose: 40 mg Famotidine (Pepcid) 40 mg PO HS [facility] Last Admin: 07/13/18 22:06 Dose: 40 mg Hydralazine HCl (Apresoline) 10 mg PO Q6 PRN PRN Reason: hypertension Insulin Human Regular (Humulin R Low) 0 units SC [facility]; Protocol Last Admin: 07/13/18 22:06 Dose: Not Given Losartan Potassium (Cozaar) 100 mg PO DAILY [facility] - Labs Labs: 07/13/18 06:00 07/13/18 06:00 PT 10.7 SECONDS (9.4-12.5) 07/12/18 15:30 INR 0.94 07/12/18 15:30 APTT 29.9 Seconds (25.1-36.5) 07/12/18 15:30 - Constitutional Appears: Non-toxic, No Acute Distress - Head Exam Head Exam: NORMAL INSPECTION, NORMOCEPHALIC - Eye Exam Eye Exam: Normal appearance Pupil Exam: NORMAL ACCOMODATION - ENT Exam ENT Exam: Mucous Membranes Moist, Normal Exam - Respiratory Exam Respiratory Exam: Clear to Ausculation Bilateral, NORMAL BREATHING PATTERN - Cardiovascular Exam Cardiovascular Exam: REGULAR RHYTHM, +S1, +S2 - GI/Abdominal Exam GI & Abdominal Exam: Soft, Normal Bowel Sounds - Extremities Exam Extremities Exam: Full ROM, Normal Capillary Refill - Neurological Exam Neurological Exam: Alert, Awake, Oriented x3 - Psychiatric Exam Psychiatric exam: Normal Affect, Normal Mood - Skin Skin Exam: Dry, Normal Color, Warm Assessment and Plan - Assessment and Plan (Free Text) Assessment: A 62 year old male who 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 He also complaints of not walking right with right sided limp and slurred speech. He was concern about symptoms so he asked his coworker to check his strength. Strengh was fine however patient felt otherwise so he then went to the staff nurse for further evaluation where RN found patient to have right sided facial droop and slurred speech. He has similar right arm numbness before and being followed up by Neurologist. He had an MRI of the brain last 06/2018 and supposed to have a follow up this July. History of TIA (3-4 years prior), NIDDM and hypertension, former smoker 2PPD. Neuro on consult. For MRI of brain but patient claimed to be claustrophobic with close MRI. will bring CD of MRI from June 2018. No cardiac work up done at [facility]. EKG, normal sinus rythm.Troponin normal. Will order Echo. Now,no slurred speech,no arm weakness. 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 No acute findings, no hemorrhage. Plan: No distress Echo done- LVEF 65%, trace AR,mild MR/TR, RVSP26 mmHg, trace pulmonic valvular regurgitation, trivial pericardial effusion No thrombus notes Heart rate stable,normal sinus rhythm, no arrythmias Denies arm weakness and slurred speech On Aspirin 81 mg daily,Lipitor 40 mg daily, Apresoline IV PRN. Norvasc 10 mg daily. Losartan 100mg daily Plavix ordered by Neuro however patient refusing to take Plavix Continue with Aspirin Continue current treatment Continue current medications Refusing MRI, due to claustrophobia, open MRI Follow up MRI CD from June 2018 Will follow up Plan and treatment discussed with Dr. Hay
[2018-07-14] MEDS: Insulin Reg-LOW-Coverage SC SCH ×4 (07:30→22:53)
--- NOTE | 2018-07-14 08:10 | CON ---
DATE: 07/13/2018 REASON FOR CONSULTATION: TIA, rule out arrhythmia, and cardiac evaluation. This note is in addition to dictated by nurse practitioner, Sherry Hernandez. BRIEF CLINICAL HISTORY: This is a 62-year-old male with past medical history significant for hypertension who had recently MRA of head and neck was ordered, but MRA only of the brain was done because his insurance did not approve. At that time, he was found to be but little weaker, so MRA was ordered. 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 Later on, the patient had slurred speech and also he came to the emergency room. He denies any chest pain, shortness of breath, or any palpitations. Longstanding history of hypertension, on amlodipine and also history of diabetes. Recommended to get echo to assess LV function, discussed with the patient. The patient had an MRA done at the [facility]. I called [facility] to get the information from [facility], but unable to get, then discussed with the patient. The patient's is going to bring the MRA report. Interim, get the lipid profile, TSH, and hemoglobin A1c. Also, get echo to assess LV function. If the patient once remained stabilized, consider stress test in 4-6 weeks as an outpatient for risk stratification because the patient recently cerebrovascular event do not suggest stress test now, but at least in 4-6 weeks. lipid profile, TSH, and hemoglobin A1c. Continue baby aspirin, aggressive control of blood pressure and we will put Cozaar also with first dose now. The patient came into the ER, but out of the window period, so tPA was not given. We will give 50 mg of Cozaar stat and then give 100 from tomorrow. We will follow with you. Thank you Dr. Krishnan for providing us the opportunity in taking care of the patient, Stephane Everett. Alondra Hay MD
--- NOTE | 2018-07-14 12:42 | PN ---
DATE: 07/14/2018 REASON FOR THE CONSULTATION AND FOLLOWUP: TIA, rule out arrhythmia, cardiac evaluation. This note is addition to dictated by the nurse practitioner, Sherry Hernandez. The patient yesterday has high blood pressure, refused medication. Restarted Cozaar but the patient initially refused. I tried to convince patient, the patient said that he will take this medication today. This morning, blood pressure 152/83. The patient had echocardiography done yesterday that revealed ejection fraction 65%, trace aortic regurgitation, trace to mild mitral regurgitation, mild tricuspid regurgitation, trace pulmonary insufficiency. RV systolic pressure 26. Calculated ejection fraction 65%. I got the number from the patient and called the [facility] to fax the result of a MRA, the patient has done recently. Interim continue Cozaar, continue Norvasc 10 mg, continue Losartan 100 mg daily. Blood pressure controlled. We will follow with you. Neurologic symptoms resolved. The patient was out of the window, did not get any TPA. Follow up neurologist. We will follow with you. No evidence of any arrhythmia noted in the groundwater monitoring technician. No evidence of any arrhythmia. No evidence of acute NE. Troponin remains flat. No evidence of acute NE. Suggest for risk stratification, stress test 6 to 8 weeks and symptoms of acute CVA resolved. After 6 to 8 weeks, suggest stress test, discussed with the patient, the patient will do with his primary supervisor [employer]. Thank you Dr. Krishnan for providing us the opportunity in taking care of the patient, Stephane Goldberg . Alondra Hay MD
--- NOTE | 2018-07-14 16:43 | CP.PCM.PN ---
<Henry Chicas - Last Filed: 07/14/18 16:43> Subjective - Date & Time of Evaluation Date of Evaluation: 07/14/18 Time of Evaluation: 07:00 - Subjective Subjective: Patient seen and examined at bedside in no acute distress. No complaints overnight. Patient agrees to taking plavix for 3 weeks. - Head Exam Head Exam: ATRAUMATIC, NORMAL INSPECTION, NORMOCEPHALIC - Eye Exam Eye Exam: EOMI - ENT Exam ENT Exam: Mucous Membranes Moist - Respiratory Exam Respiratory Exam: Clear to Auscultation Bilateral, NORMAL BREATHING PATTERN - Cardiovascular Exam Cardiovascular Exam: REGULAR RHYTHM - Neurological Exam Neurological exam: Alert, CN II-XII Intact, Oriented x3 - Expanded Neurological Exam Expanded Speech: Fluid Speech Cranial nerves: EOM's Intact: Normal, Facial Sensation: Normal, Tongue Deviation: Normal Cerebellar Function: Finger to Nose: Normal, Heel to Amado: Normal, Romberg: Normal Upper motor neuron: Pronator Drift: Abnormal Right however improving, Sensory Extinction: Normal Sensory exam: Lower Extremity 2 Point Discrimination: Normal, Upper Extremity 2 Point Discrimination: Normal Neuro motor strength exam: Left Upper Extremity: 5, Right Upper Extremity: 5, Left Lower Extremity: 5, Right Lower Extremity: 5 DTR: Patellar Left: 0, Patellar Right: 0 Coma Scale Motor Response: OBEYS COMMANDS - Psychiatric Exam Psychiatric exam: Normal Affect, Normal Mood - Skin Skin Exam: Normal Color, Warm Objective - Vital Signs/Intake and Output Vital Signs (last 24 hours): Temp Pulse Resp BP Pulse Ox 98.6 F 74 20 148/80 99 07/14/18 12:00 07/14/18 12:00 07/14/18 12:00 07/14/18 12:00 07/14/18 00:01 Intake and Output: 07/14/18 07/14/18 06:59 18:59 Intake Total 120 Output Total 500 Balance -380 - Medications Medications: Current Medications Amlodipine Besylate (Norvasc) 10 mg PO DAILY [facility] Last Admin: 07/14/18 10:00 Dose: 10 mg Aspirin (Ecotrin) 81 mg PO DAILY [facility] Last Admin: 07/14/18 10:00 Dose: 81 mg Atorvastatin Calcium (Lipitor) 40 mg PO DIN [facility] Last Admin: 07/13/18 17:28 Dose: 40 mg Clopidogrel Bisulfate (Plavix) 75 mg PO DAILY [facility] Famotidine (Pepcid) 40 mg PO HS [facility] Last Admin: 07/13/18 22:06 Dose: 40 mg Hydralazine HCl (Apresoline) 10 mg PO Q6 PRN PRN Reason: hypertension Insulin Human Regular (Humulin R Low) 0 units SC [facility]; Protocol Last Admin: 07/14/18 12:30 Dose: Not Given Losartan Potassium (Cozaar) 100 mg PO DAILY [facility] Last Admin: 07/14/18 10:01 Dose: 100 mg - Labs Labs: 07/13/18 06:00 07/13/18 06:00 PT 10.7 SECONDS (9.4-12.5) 07/12/18 15:30 INR 0.94 07/12/18 15:30 APTT 29.9 Seconds (25.1-36.5) 07/12/18 15:30 Assessment and Plan - Assessment and Plan (Free Text) Assessment: 62 M with history of right cerebellar stroke presenting with TIA symptoms including right arm heaviness, slurred speech, and right leg weakness which have improved within less than 24 hours. -Continue daily aspirin -Start Plavix for 3 weeks -Continue statin considering ASCVD score of 37.5% -MRI brain; patient states he does not want to do MRI inpatient since it is not an open MRI. Patient states he will have an open MRI outpatient upon discharge since he is claustrophobic -Patient's DM is uncontrolled with a HgA1c of 8. Discussed with patient need for diet and exercise. Patient states he refuses to take insulin and is trying to control his DM with medication and diet alone. <Saad Tolentino - Last Filed: 07/16/18 13:47> Objective - Vital Signs/Intake and Output Vital Signs (last 24 hours): Temp Pulse Resp BP Pulse Ox 98.1 F 65 21 168/97 H 99 07/15/18 12:00 07/15/18 12:00 07/15/18 12:00 07/15/18 12:00 07/14/18 00:01 - Labs Labs: 07/13/18 06:00 07/13/18 06:00 PT 10.7 SECONDS (9.4-12.5) 07/12/18 15:30 INR 0.94 07/12/18 15:30 APTT 29.9 Seconds (25.1-36.5) 07/12/18 15:30 Attending/Attestation - Attestation I have personally seen and examined this patient.: Yes I have fully participated in the care of the patient.: Yes I have reviewed all pertinent clinical information, including history, physical exam and plan: Yes Notes (Text): Will follow up with patient in the office in 3 weeks. Continue aspirin/plavix for 21 days, then we will decide based on PRU which agent will be discontinued.
--- NOTE | 2018-07-15 00:01 | PN ---
DATE: 07/14/2018 SUBJECTIVE: The patient is a 62-year-old male. The patient was seen and examined at the bedside on 07/14/2018. Sitting on bedside, looking comfortable. No fever. No chills. in all 4 extremities are back. No slurring of speech. Eating very well. No headache. No dizziness. No chest pain. No palpitations. No complaints overnight. Neurologist talked to the patient, the patient agreed to take Plavix for 3 weeks. PHYSICAL EXAMINATION: VITAL SIGNS: Temperature 98.6, pulse 74, respiratory rate 20, blood pressure 148/80, and pulse oximetry 99. HEENT: Head; normocephalic and atraumatic. Eyes; PERRLA. Extraocular muscles intact. Conjunctivae clear. Nose patent. Mucous membrane moist. NECK: Supple. No carotid bruits, JVD, or thyromegaly. CHEST: Bilaterally symmetrical. HEART: S1 and S2 positive. LUNGS: Clear to auscultation. ABDOMEN: Soft. Bowel sounds present. No organomegaly. EXTREMITIES: No edema. No cyanosis. NEUROLOGIC: The patient is awake and alert. Moving all four extremities. No focal deficits. MEDICATIONS: Norvasc, Ecotrin, Lipitor, Plavix, hydralazine, insulin, and Cozaar. LABORATORY DATA: White blood cell 6.5, hemoglobin 11.6, hematocrit 36.8, and platelets 187. Sodium 146, potassium 4, BUN 21, creatinine 1.2, and glucose 176. ASSESSMENT: Mr. Stephane Everett is a 62-year-old male with anemia, hyperglycemia came with right cerebral stroke, presented with transient ischemic attack symptoms including right arm heaviness, slurring speech, and right leg weakness which has improved within less than 24 hours. PLAN: We will continue aspirin, starting Plavix for 3 weeks. Continue statin. Plan was to do the patient's MRI, but the patient is claustrophobic, he refused that. His MRI was done before stroke and I explained him very well that we want MRI after stroke to see the damage. He understands, but he is still claustrophobic, he refused MRI. I offered him sedation, Xanax and alprazolam, but still he is refusing. His sugar is very uncontrolled. Hemoglobin A1c is 8. Length of time discussion done with the patient and he is refusing insulin, lifestyle modification, even for his blood pressure medication, he is a very noncompliant. He just wants to pick medicine whatever he wants, but still we are educating the patient to give him physical therapy. Repeat labs. If neurologist and plant senior manager clears, we may discharge the patient. According to plant senior manager, needs a stress test as outpatient. Azra Krishnan MD
--- NOTE | 2018-07-15 07:10 | CP.PCM.PN ---
Subjective - Date & Time of Evaluation Date of Evaluation: 07/15/18 Time of Evaluation: 06:25 - Subjective Subjective: Awake,feels better, no distress Reason for consultation and follow up: Cardiac evaluation, history of TIA, hypertension, NIDDM, admitted for right sided facial droop and slurred speech with resolution within 24 hours. Seen and examined by me and Dr. Fairchild Objective - Vital Signs/Intake and Output Vital Signs (last 24 hours): Temp Pulse Resp BP Pulse Ox 98.2 F 57 L 18 138/83 99 07/15/18 06:00 07/15/18 06:00 07/15/18 06:00 07/15/18 06:00 07/14/18 00:01 Intake and Output: 07/15/18 07/15/18 06:59 18:59 Intake Total 2640 Output Total 8 Balance 2632 - Medications Medications: Current Medications Amlodipine Besylate (Norvasc) 10 mg PO DAILY [facility] Last Admin: 07/14/18 10:00 Dose: 10 mg Aspirin (Ecotrin) 81 mg PO DAILY [facility] Last Admin: 07/14/18 10:00 Dose: 81 mg Atorvastatin Calcium (Lipitor) 40 mg PO DIN [facility] Last Admin: 07/14/18 18:14 Dose: 40 mg Clopidogrel Bisulfate (Plavix) 75 mg PO DAILY [facility] Last Admin: 07/14/18 18:14 Dose: 75 mg Famotidine (Pepcid) 40 mg PO HS [facility] Last Admin: 07/14/18 22:51 Dose: 40 mg Hydralazine HCl (Apresoline) 10 mg PO Q6 PRN PRN Reason: hypertension Insulin Human Regular (Humulin R Low) 0 units SC [facility]; Protocol Last Admin: 07/14/18 22:53 Dose: Not Given Losartan Potassium (Cozaar) 100 mg PO DAILY [facility] Last Admin: 07/14/18 10:01 Dose: 100 mg - Labs Labs: 07/13/18 06:00 07/13/18 06:00 PT 10.7 SECONDS (9.4-12.5) 07/12/18 15:30 INR 0.94 07/12/18 15:30 APTT 29.9 Seconds (25.1-36.5) 07/12/18 15:30 - Constitutional Appears: Non-toxic, No Acute Distress - Head Exam Head Exam: NORMAL INSPECTION, NORMOCEPHALIC - Eye Exam Eye Exam: Normal appearance Pupil Exam: NORMAL ACCOMODATION - ENT Exam ENT Exam: Mucous Membranes Moist, Normal Exam - Respiratory Exam Respiratory Exam: Decreased Breath Sounds, Clear to Ausculation Bilateral, NORMAL BREATHING PATTERN - Cardiovascular Exam Cardiovascular Exam: Bradycardia, +S1, +S2 - GI/Abdominal Exam GI & Abdominal Exam: Soft, Normal Bowel Sounds - Extremities Exam Extremities Exam: Full ROM, Normal Capillary Refill - Neurological Exam Neurological Exam: Alert, Awake, Oriented x3 Additional comments: denies arm weakness, no slurred speech - Psychiatric Exam Psychiatric exam: Normal Affect, Normal Mood - Skin Skin Exam: Dry, Normal Color, Warm Assessment and Plan - Assessment and Plan (Free Text) Assessment: A 62 year old male who 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 He also complaints of not walking right with right sided limp and slurred speech. He was concern about symptoms so he asked his coworker to check his strength. Strengh was fine however patient felt otherwise so he then went to the staff nurse for further evaluation where RN found patient to have right sided facial droop and slurred speech. He has similar right arm numbness before and being followed up by Neurologist. He had an MRI of the brain last 06/2018 and supposed to have a follow up this July. History of TIA (3-4 years prior), NIDDM and hypertension, former smoker 2PPD. Neuro on consult. For MRI of brain but patient claimed to be claustrophobic with close MRI. will bring CD of MRI from June 2018. No cardiac work up done at [facility]. EKG, normal sinus rythm.Troponin normal. no slurred speech,no arm weakness. CT of head showed c hronic infarct with enchephalomalacia in the right cerebellar hemisphere and right medial temporal lobe. No acute findings, no hemorrhage.TIA. normal sinus rhythm, no arrythmias, Echo done- LVEF 65%, trace AR,mild MR/TR, RVSP26 mmHg, trace pulmonic valvular regurgitation, trivial pericardial effusion, No thrombus notes. Cardiac status stable. On Aspirin and plavix. Plan: No distress, no slurred speech,Denies arm weakness Heart rate stable,normal sinus rhythm, no arrythmias Blood pressure controlled Glucose controlled On Aspirin 81 mg daily,Lipitor 40 mg daily, Apresoline IV PRN. Norvasc 10 mg daily. Losartan 100mg daily. Plavix 75 mg daily. Agreed to take Plavix for 3 weeks. Has a lot of concerns on taking medications, answered questions Out patient stress test Discontinue telemetry May discharge from cardiac standpoint Follow up with his Neurologist Continue current treatment Continue current medications Will follow up Plan and treatment discussed with Dr. Fairchild
[2018-07-15] MEDS: Insulin Reg-LOW-Coverage SC SCH ×2 (08:22→12:36)
[2018-07-15 12:59] VITALS: BP 168/97; PULSE 65; RESP 21; TEMP 98.1
--- NOTE | 2018-07-15 16:11 | PN ---
DATE: 07/15/2018 LOCATION: Room 263, bed 1. SUBJECTIVE: Detailed note has been written by Sherry Hernandez. This is additional note. The patient is conscious, alert. Denies chest pain, shortness of breath or palpitation. The patient was admitted with transient weakness of the right extremity and some slurring of speech which has completely cleared now. The patient case of non-insulin dependent diabetes mellitus, hypertension, former smoker 2 packs a day. PHYSICAL EXAMINATION: VITAL SIGNS: Blood pressure 153/77, earlier blood pressure was 138/83, respirations 18, pulse 62. The patient is afebrile. HEENT: Head is normocephalic. Eyes, pupils normal. Conjunctivae are normal. NECK: JVP low. Carotid equal. THORAX: AP diameter normal. LUNGS: Clear. CARDIOVASCULAR: S1, S2. ABDOMEN: Soft, nontender. No organomegaly. Bowel sounds normal. EXTREMITIES: No clubbing. No cyanosis. LABORATORY DATA: WBC 6.5, hemoglobin 11.6, hematocrit 36.8, platelets 187. Random sugar 174. Sodium 142, potassium 4.0, BUN 21, creatinine 1.2. Triglycerides 83, cholesterol 185, TSH 2.87. Echo showed LV ejection fraction of 65%, trace AR, mild MR, mild TR, RVSP 26 mmHg, trace pulmonic regurgitation, trivial pericardial effusion. No thrombus seen. PLAN: Plan is to continue aspirin 81 mg daily, Lipitor 40 daily, Norvasc 10 daily, losartan 100 mg daily, Plavix 75 mg daily. Suspicion of TIA, we will wait for the stress test, because the patient has risk factors of coronary artery disease, so he can do the stress test and nuclear stress test as outpatient after few weeks. Clinically, he did not have any cardiac symptom at present and we will continue present therapy with aspirin, atorvastatin, amlodipine, Plavix, and Pepcid. We will follow with you. Alondra Fairchild MD
== END 2018-07-15 16:39 | disposition home or self-care (01) | DRG 69 ==
LOC: ED 14:33 → ERH 16:21 → 2RNO 17:21 → OBSVTOIN 07-14 17:03
PROVIDERS: ADMIT Internal Medicine; ATTEND Internal Medicine
DX: G45.9 Transient cerebral ischemic attack, unspecified (principal); E11.65 Type 2 diabetes mellitus with hyperglycemia; F40.240 Claustrophobia; E11.649 Type 2 diabetes mellitus with hypoglycemia without coma; G93.89 Other specified disorders of brain; I10 Essential (primary) hypertension; Z79.02 Long term (current) use of antithrombotics/antiplatelets; Z79.82 Long term (current) use of aspirin; Z79.84 Long term (current) use of oral hypoglycemic drugs; Z79.899 Other long term (current) drug therapy; Z86.73 Personal history of transient ischemic attack (TIA), and cerebral infarction without residual deficits; Z87.891 Personal history of nicotine dependence; D64.9 Anemia, unspecified; Z91.013 Allergy to seafood